=== PATIENT | female | born 1965 | race Caucasian/White ===

== ENCOUNTER 2017-08-12 15:53 | Emergency (ER) | payer BC ==
[2017-08-12] MEDS ORDERED: CEFTRIAXONE SODIUM 2 GM in 0.9 % SODIUM CHLORIDE 100ML 100 ML IVPB ONE (16:09)
[2017-08-12] MEDS ORDERED: DEXAMETHASONE SOD PHOSPHATE 10MG/ML VIAL IVP ONE (16:09)
[2017-08-12] MEDS ORDERED: 0.9 % SODIUM CHLORIDE 1,000 ML BAG IV ONE (16:10)
[2017-08-12] MEDS ORDERED: KETOROLAC 30 MG/ML VIAL IVP ONE (16:10)
[2017-08-12] MEDS ORDERED: ONDANSETRON HCL IV 4 MG/2 ML VIAL IVP ONE (16:10)
--- NOTE | 2017-08-12 16:16 | Emergency Department Record ---
History of Present Illness - General Chief complaint: Dental Stated complaint: DENTIST REFERED PT TO ER, BRUCE LT SIDE MOUTH Time Seen by Provider: 08/12/17 16:02 Source: Patient, Family Mode of Arrival: Ambulatory Limitations: No limitations - History of Present Illness Initial comments: 52 yo female presents with a dental infection. She developed symptoms on Saturday. She has pain and some swelling at the left mandible. This has made her nauseated. She has been throwing up as well. She say a dentist today. Given her nausea and vomiting she was directed to go to an ER for fluids, and IV antibiotics. No fever. She is be referred to an design/animation instructor. She is allergic to Penicillin, Clindamycin and Bactrim. Her dentist was Dr Jones in [place]. complaint: Tooth pain -: Days(s) (2) Location: Tooth # (17) Severity: Moderate Quality: Aching Consistency: Constant Improves with: None Worsens with: Eating Context- Dental: History of dental caries - Related Data Home Medications Medication Instructions Recorded Confirmed Last Taken Loratadine [Claritin] 10 mg PO DAILY 08/12/17 08/12/17 Unknown Previous Rx's Medication Instructions Recorded Cephalexin [Keflex] 500 mg PO QID #40 cap 08/12/17 Ondansetron [Zofran Odt] 4 mg PO Q8H #20 tab.rapdis 08/12/17 Allergies Allergy/AdvReac Type Severity Reaction Status Date / Time codeine Allergy Severe ABDOMINAL Unverified 07/31/16 16:34 PAIN Penicillins Allergy Unknown PT UNSURE Unverified 07/31/16 16:34 OF REACTION Sulfa (Sulfonamide Allergy Unknown PT UNSURE Unverified 07/31/16 16:34 Antibiotics) OF REACTION Review of Systems Constitutional: Denies: Chills, Fever, Malaise, Weakness Eyes: Denies: Eye discharge ENT: Reports: Dental pain. Denies: Congestion, Epistaxis, Throat pain Respiratory: Denies: Cough, Dyspnea Cardiovascular: Denies: Chest pain, Syncope Endocrine: Denies: Fatigue Gastrointestinal: Reports: Nausea, Vomiting. Denies: Abdominal pain, Diarrhea Genitourinary: Denies: Dysuria, Urgency Musculoskeletal: Denies: Arthralgia, Back pain, Myalgia, Neck pain Skin: Denies: Bruising, Change in color, Rash Neurological: Denies: Confusion, Headache, Numbness, Weakness Psychiatric: Denies: Anxiety Hematological/Lymphatic: Denies: Blood Clots, Easy bleeding, Easy bruising, Swollen glands Physical Exam - General General Appearance: Alert, Oriented x3, Cooperative, No acute distress, Other ( Well appearing, comfortable, clear voice, no stridor, no neck swelling, non ill in appearance) Limitations: No limitations - Head Head exam: Atraumatic, Normal inspection Image of Chin: 1 - mild local swelling without erythema, mild tenderness, supple neck without any tenderness - Eye Eye exam: Normal appearance. negative: Conjunctival injection, Periorbital swelling - ENT ENT exam: Mucous membranes moist, Normal orophraynx Ear exam: Normal external inspection Nasal Exam: Normal inspection Mouth exam: Normal external inspection Teeth exam: Dental caries (impaction with local gum swelling, no pus or fluctuance), Dental tenderness #. negative: Normal inspection Throat exam: Normal inspection. negative: Tonsillar erythema, Tonsillomegaly, Tonsillar exudate - Neck Neck exam: Normal inspection, Full ROM. negative: Lymphadenopathy, Tenderness - Respiratory Respiratory exam: Normal lung sounds bilaterally. negative: Respiratory distress - Cardiovascular Cardiovascular Exam: Regular rate, Normal rhythm, Normal heart sounds - Rectal Rectal exam: Deferred - exam: Deferred - Extremities Extremities exam: Normal inspection - Neurological Neurological exam: Alert, Normal gait, Oriented X3. negative: Altered - Psychiatric Psychiatric exam: Normal affect, Normal mood. negative: Agitated, Anxious - Skin Skin exam: Dry, Intact, Normal color, Warm Course - Reevaluation(s) Reevaluation #1: 08/12/17 17:08 The patient is doing very well No nausea Her pain is well controlled We discussed DC home, home care and reasons to return to the ED for reevaluation Disposition Disposition: Discharge Clinical Impression: Abscess, dental Disposition: Home, Self-Care Condition: (1) Good Instructions: Dental Abscess (ED) Additional Instructions: Follow up with your doctor this week as scheduled for close follow up of your dental infection Return to the ED if worse, vomiting, uncontrolled pain or concerns. Prescriptions: Cephalexin [Keflex] 500 mg PO QID #40 cap Ondansetron [Zofran Odt] 4 mg PO Q8H #20 tab.rapdis Forms: Patient Portal Access Time of Disposition: 17:08 Quality - Quality Measures Quality Measures: N/A - Blood Pressure Screening Does Patient Have Any of the Following: No Blood Pressure Classification: Normal BP Reading Systolic Measurement: 100 Diastolic Measurement: 70 Screening for High Blood Pressure: < Normal BP, F/U Not Required > [G8783]
== END 2017-08-12 17:17 | disposition home or self-care (01) ==
LOC: ER 15:53
DX: K04.7 Periapical abscess without sinus (principal)
CPT/HCPCS: 99284 ×2; 96374; 96375; J1885; J2405; J1100; J7030